=== PATIENT | male | born 1955 | race Caucasian/White ===

== ENCOUNTER 2020-07-31 12:03 | Inpatient (IN) | payer MEDICAID, SELFPAY ==
[2020-07-31 12:06] VITALS: BP 156/101; PULSE 98; RESP 16; TEMP 36.9; O2SAT 98; BMI 22.4
--- NOTE | 2020-07-31 12:26 | EKG12_ITS ---
Test Reason : Blood Pressure : / mmHG Vent. Rate : 081 BPM Atrial Rate : 081 BPM P-R Int : 174 ms QRS Dur : 104 ms QT Int : 364 ms P-R-T Axes : 036 -37 047 degrees QTc Int : 422 ms Normal sinus rhythm Left axis deviation Minimal voltage criteria for LVH, may be normal variant Abnormal ECG Confirmed by ROBIN THOMSON, IRENE ([id number]), editorial specialist FIORELLA VALDEZ ([id number]) on 08/03/2020 9:25:39 AM Referred By: SAI Confirmed By:IRENE KELLY MD
--- NOTE | 2020-07-31 12:26 | CT_ITS ---
STUDY: CT BRAIN WITHOUT CONTRAST REASON FOR EXAM: Male, 64 years old. confusion RADIATION DOSAGE (If Supplied By Facility): CTDIvol = ( 44.99 ) mGy, DLP = ( 796.11 ) mGycm TECHNIQUE: Transaxial CT imaging of the brain was performed without administration of intravenous contrast material. Individualized dose optimization techniques were used for this CT. COMPARISON: No relevant priors. FINDINGS: Normal soft tissue structures. Normal calvarium. Normal size ventricles and extra-axial spaces for the patient''s age. Normal white matter tracts of the cerebral hemispheres. Normal basal ganglia and thalami. Normal brainstem. Normal cerebellum. There is no intracranial hemorrhage. There are no findings of an acute ischemic infarction. Normal visualized paranasal sinuses. CT/Brain/Head without Contrast IMPRESSION: Normal unenhanced CT scan of the brain. Electronically Signed: Errol Murdock MD at 13:15 EDT Tel , Service support ,
--- NOTE | 2020-07-31 12:27 | RAD_ITS ---
STUDY: X-RAY CHEST REASON FOR EXAM: Male, 64 years old. sob TECHNIQUE: PA and lateral views of the chest. COMPARISON: None. FINDINGS: The lungs are clear and expanded. There is no demonstrated pleural abnormality. Normal size heart. Normal mediastinum and mahendra. Normal visualized pulmonary arteries. Normal visualized aortic arch and descending thoracic aorta. Normal visualized thoracic spine. Normal visualized ribs, clavicles, and shoulders. There is no demonstrated abnormality of the visualized soft tissue structures of the upper abdomen. RAD/Chest PA and Lateral IMPRESSION: Normal x-ray examination of the chest. Electronically Signed: Errol Murdock MD at 13:14 EDT Tel , Service support ,
--- NOTE | 2020-07-31 12:28 | EX.ED.DYSGE1 ---
HPI History of Present Illness Chief Complaint: General Illness Informant: patient and family Onset/Context/Timing Onset: Month(s) Context: Gradual Onset Current Severity: Moderate Maximum Severity: Moderate Narrative Narrative: Patient presents with complaints of tingling and decreased sensation. He states for months he has had problems with the symptoms in his hands and feet. Over the last several days he now feels that sensation over his entire body. He reports intermittent confusion as well as a 50 pound weight loss in the last couple months. Brother describes he ambulates with a shuffled gait has a very difficult time getting around. Patient does live alone. Patient does follow with Dr. Jacobsen. He is on losartan and atorvastatin for hypertension and high cholesterol. He recently started bupropion for smoking cessation. [facility] Medical History High cholesterol Hypertension Home Medications aspirin [Aspir-81] 81 mg PO DAILY 07/31/20 [History Last Taken Unknown] atorvastatin 80 mg PO QHS 07/31/20 [History Last Taken Unknown] bupropion HCl 300 mg PO DAILY 07/31/20 [History Last Taken Unknown] losartan 100 mg PO DAILY 07/31/20 [History Last Taken Unknown] Allergy/AdvReac Type Severity Reaction Status Date / Time No Known Allergies Allergy Verified 07/31/20 12:11 Social History Smoking Status: Current some day smoker ROS ROS ED Constitutional Constitutional ED: Denies chills or fever(s) Eyes Eyes: Denies change in vision ENT ENT ED: Denies sore throat Cardiovascular Cardiovascular: Denies chest pain Respiratory/Chest Respiratory/Chest: Denies cough or dyspnea Gastrointestinal Gastrointestinal: Denies abdominal pain, diarrhea, nausea or vomiting Genitourinary Genitourinary ED: Denies dysuria Musculoskeletal Musculoskeletal: Denies back pain Integumentary Denies rash Neurologic Neurologic: Reports paresthesias and weakness; Denies headache(s) Psychiatric Psychiatric: Denies anxiety or depression Endocrine Endocrinology: Denies polydipsia or polyuria Allergic/Immunologic Allergic/Immunologic ED: Denies urticaria EXAM Physical Exam Const Vital Signs: 07/31/20 12:06 07/31/20 12:20 07/31/20 12:43 Temperature 98.4 F Temperature Source Temporal Pulse Rate 98 100 Respiratory Rate 16 15 Respiratory Effort Normal Non-Labored Respiratory Pattern Normal Blood Pressure 156/101 H 116/87 H Blood Pressure Mean 119 96 Pulse Ox 98 100 Oxygen Delivery Method Room Air Room Air 07/31/20 12:49 Temperature Temperature Source Pulse Rate Respiratory Rate Respiratory Effort Normal Respiratory Pattern Normal Blood Pressure Blood Pressure Mean Pulse Ox Oxygen Delivery Method Positive well nourished and well developed General Appearance ED: well developed HEENT Reports normocephalic and head/scalp atraumatic Eyes PERRL and EOMs intact bilaterally Neck supple Chest Wall inspection of chest normal and palpation of chest normal Resp normal respiratory effort and clear to auscultation bilaterally Cardio regular rate and regular rhythm GI normal to inspection, nondistended, normoactive bowel sounds Palpation: soft Extremity normal to inspection Neuro oriented x3 Neuro Narrative: Patient reports decreased sensation to light touch throughout. Symptoms are equal bilaterally. He does have mild weakness noted but no focal deficits. Sensorium / Orientation: alert Psych mental status grossly normal Skin no rashes or lesions noted MDM MDM MDM Narrative Medical decision making narrative: Patient was placed on musculoskeletal physician. Vital signs were monitored throughout his ED stay. Lab Data Attestation: I reviewed the patient's lab results. Labs: Laboratory Results - last 24 hr 07/31/20 07/31/20 12:42 12:42 WBC 7.2 RBC 4.22 L Hgb 13.8 Hct 41.5 MCV 98.3 H MCH 32.7 H MCHC 33.3 RDW Std Deviation 44.4 H RDW Coeff of Junior 12.2 Plt Count 230 MPV 10.2 Immature Gran % (Auto) 0.400 Neut % (Auto) 73.3 H Lymph % (Auto) 15.1 L [place] % (Auto) 8.8 Eos % (Auto) 2.0 Baso % (Auto) 0.4 Absolute Neuts (auto) 5.3 Absolute Lymphs (auto) 1.08 Nucleated RBC % 0 Sodium 139 Potassium 3.7 Chloride 102 Carbon Dioxide 31.0 Anion Gap 6 BUN 16 Creatinine 0.75 Estim Creat Clear Calc 96.71 Est GFR (MDRD) Af Amer 135 Est GFR (MDRD) Non-Af 111 BUN/Creatinine Ratio 21.2 H Glucose 106 Calcium 9.7 Magnesium 2.3 Radiography Chest X-Ray - ED: 2 View, Read by ED Physician and Chronic Changes Diagnostic Testing: Radiology Impression Brain CT 07/31/20 12:26 IMPRESSION: Normal unenhanced CT scan of the brain. Electronically Signed: Errol Murdock MD at 13:15 EDT Tel , Service support , Chest X-Ray 07/31/20 12:27 IMPRESSION: Normal x-ray examination of the chest. Electronically Signed: Errol Murdock MD at 13:14 EDT Tel , Service support , EKG Initial EKG: Attestation: I personally reviewed and interpreted this EKG as follows: Interpretation: Sinus Rhythm (Sinus at 81 with no acute ischemia.) Prior EKG tracings: available for review Treatment and Re-Evaluation Comments:: On repeat evaluation patient is resting comfortably. Test results discussed with patient as well as his brother at bedside. Brother does mention the patient supposedly had recent MRI and bronchoscopy at [facility]. I was able to review some of these records in clinic sink. They have the patient diagnosed with sarcoidosis of the lung. Due to his ataxia, muscle weakness, and paresthesias they were trying to obtain MRIs of his spine. On July 29 he got an MRI of the lumbar spine which revealed degenerative disc disease and mild canal stenosis. There is no evidence of sarcoid involvement of the lumbar spine. Patient reported was not able to lie still for the thoracic or cervical scans. He did have a bronchoscopy performed on July 13 as well. There is significant concern about the patient's ability to care for himself and get around at home. He is quite forgetful and in fact does not remember having the bronchoscopy or MRIs performed. Brother is concerned that he may not be taking his medications or remembering his appointments. He also has concern about the patient's ability to get around with his shuffling gait and and balance. In light of this we recommended observation in the hospital for physical therapy evaluation. He is aware that they may very well recommend a custodial for rehab to regain his strength and work on balance. He is amenable to this if needed. Discharge Plan Triage Chief Complaint: General Illness ED Provider: Christine Mondragon Dx/Rx/DC Orders Clinical Impression: Paresthesias, Ataxia Prescriptions: No Action atorvastatin 80 mg Tablet 80 mg PO QHS RF: 0 aspirin [Aspir-81] 81 mg Tablet,Delayed Release (Dr/Ec) 81 mg PO DAILY RF: 0 losartan 100 mg Tablet 100 mg PO DAILY RF: 0 bupropion HCl 300 mg Tablet Extended Release 24 Hr 300 mg PO DAILY RF: 0 Primary Care Provider: Suleiman Jacobsen Referrals: Suleiman Jacobsen DO [Primary Care Provider] - Disposition Disposition: Acute Care Hospital [facility]
[2020-07-31 12:43] VITALS: BP 116/87; PULSE 100; RESP 15; O2SAT 100
[2020-07-31] MEDS: 0.9% Normal Saline 1,000 ML 150 ML IV ×2 (12:51→19:21)
[2020-07-31 12:53] LABS: Absolute Lymphocyte Count 1.08 X10^3/uL (0.83-4.51); Absolute Neutrophil Count 5.3 X10^3/uL (2.0-7.7); Basophil# 0.03 X10^3/uL; Basophil% 0.4 % (0-1); Eosinophil# 0.14 X10^3/uL; Hematocrit 41.5 % (40-54); Hemoglobin 13.8 g/dL (13.0-16.5); Lymphocyte # 1.08 X10^3/ul (0.83-4.51); Lymphocyte % 15.1 % (19-41); Mean Corp Hgb Conc 33.3 g/dL (32-36); Mean Corpuscular Hgb 32.7 pg (27.0-32.0); Mean Corpuscular Volume 98.3 fL (80-94); Mean Platelet Vol. 10.2 fl (6.2-12.0); Monocyte# 0.63 X10^3/uL; Monocyte% 8.8 % (0-10); NRBC Flagged by Analyzer 0 % (0-5); Neutrophil # 5.25 X10^3/uL (2.7-7.7); Neutrophil % 73.3 % (47-70); Platelet Count 230 K/mm3 (150-450); RBC Distribution Width CV 12.2 % (11.6-14.6); RBC Distribution Width SD 44.4 fl (35.1-43.9); Red Blood Count 4.22 M/mm3 (4.6-6.2); White Blood Count 7.2 K/mm3 (4.4-11.0)
[2020-07-31 13:08] LABS: Anion Gap 6 (5-15); BUN 16 mg/dL (7-18); BUN/Creat Ratio 21.2 RATIO (10-20); Calcium,Total 9.7 mg/dL (8.5-10.1); Chloride 102 mmol/L (98-107); Creatinine, Serum 0.75 mg/dL (0.70-1.30); EST Glomerular Filtration Rate 111 mL/min (>60); Est Glom Filt Rate - Afr Amer 135 mL/min (>60); Estimated Creatinine Clearance 96.71 ml/min; Glucose 106 mg/dL (74-106); Magnesium 2.3 mg/dL (1.6-2.6); Potassium 3.7 mmol/L (3.5-5.1); Sodium Level 139 mmol/L (136-145)
--- NOTE | 2020-07-31 14:09 | NURSING ---
DR MOLINA FOR DR BAILEY
--- NOTE | 2020-07-31 14:16 | NURSING ---
MED SURG TRACY ATAXIA, FUNCTIONAL DECLINE
[2020-07-31 15:03] VITALS: BP 136/99; PULSE 81; RESP 16; TEMP 36.9; O2SAT 98
--- NOTE | 2020-07-31 15:10 | HP.PCM.HOS_ITS ---
HPI - General General Date of Admission: 07/31/20 HPI Narrative BALTA DELATORRE, is a 64 M who presented to the emergency department [facility] on 07/31/2020 with his brother. His primary complaint on presentation is decreased ability to ambulate independently, paresthesias, and weakness. The patient's brother gives the majority of the history as the patient is unable to remember details regarding anything recently that has occurred. He had evidently began having paresthesias and weakness a while ago and now is with approximately 50 pounds of weight loss in the past 2 to 3 months. He has been out of work for some time but cannot tell me how long. His brother indicates that he has had bronchoscopy and a lumbar spine MRI recently but was unclear on the location and the patient had no recollection that either of these procedures were performed. Upon review of data in [facility], it appears that the patient initially had a CT scan of his chest in which sarcoido sis was a possible differential earlier in the year and this was followed up by a bronchoscopy at [facility] for which the pathology was unrevealing based on my review. He also had a lumbar spine MRI that was performed here at [facility] on 07/29/2020 that revealed de generative disc disease and mild central canal stenosis. He was also to have an MRI of his brain, cervical spine, and thoracic spine but he was not and able to lie flat for these and it was recommended that he follow-up at a later time with medication to have these done. His brother is significantly concerned that he is unable to take care of himself. He feels that his weight loss may be related to initially the patient complaining of a metallic taste in his mouth and decreased desire to eat but now may be related to memory loss. His brother indicates that the patient was a heavy drinker when he was working but the patient states he is not really been drinking alcohol since he has been out of work which at this time is an unknown amount of time. His brother states that his gait is shuffling and he moves inches at a time. The patient complains of falls particularly when it is dark. He complains of decreased sensation in his feet and hands and decreased strength in both as well. He is currently living alone and the brother feels that he is not able to take care of himself indep endently at this time and will likely need placed for continued rehab. His vital signs the emergency department were overall unremarkable other than some hypertension. His CBC was unremarkable other than some macrocytosis. A BMP was performed and showed no market abnormalities. No LFTs were obtained in the emergency department. [facility] Medical History (Updated 07/31/20 @ 15:39 by Shannon Hwang) Alcohol abuse Alcohol abuse CPAP (continuous positive airway pressure) dependence High cholesterol Hypertension Myocardial infarct Psoriasis Sleep apnea Tobacco abuse Home Medications aspirin [Aspir-81] 81 mg PO DAILY 07/31/20 [History Last Taken Unknown] atorvastatin 80 mg PO QHS 07/31/20 [History Last Taken Unknown] bupropion HCl 300 mg PO DAILY 07/31/20 [History Last Taken Unknown] losartan 100 mg PO DAILY 07/31/20 [History Last Taken Unknown] Allergy/AdvReac Type Severity Reaction Status Date / Time No Known Allergies Allergy Verified 07/31/20 15:26 Family History (Updated 07/31/20 @ 15:[address] Elizabeth Lucas DO) Brother No problems noted. no surgical history Social History (Updated 07/31/20 @ 15:[address] Elizabeth Lucas DO) adopted: No household members: none housing: house financial difficulty paying for basics: hard current occupational status: other current occupation: [employer] Smoking Status: Current some day smoker alcohol intake: former details: 1 case 12 oz beers daily but not currently drinking substance use type: does not use ROS Constitutional Constitutional: Reports anorexia, change in weight, weakness and other Details: Psoriasis ; Denies chills, fatigue, fever(s), malaise or night sweats Eyes Eyes: Denies blurry vision, change in eye color, change in vision, discharge from eye(s), double vision, erythema, eye pain or loss of vision ENT HEENT: Denies abnormal hearing, dysphagia, ear pain, epistaxis, headache(s), hearing loss, nasal congestion, nasal discharge, post nasal drip, sinus pressure, sore throat or other Cardiovascular Cardiovascular: Denies chest pain, claudication, dyspnea on exertion, edema, lightheadedness, orthopnea, palpitations, paroxysmal nocturnal dyspnea, rapid heart rate, syncope or other Respiratory/Chest Respiratory/Chest: Denies cough, dyspnea, excessive phlegm production, hemoptysis, productive cough, shortness of breath at rest, shortness of breath with exertion, wheezing or other Gastrointestinal Gastrointestinal: Denies abdominal pain, coffee ground emesis, constipation, diarrhea, dyspepsia, hematemesis, hematochezia, loose stools, melena, nausea, vomiting or other Genitourinary Genitourinary: Denies burning urination, difficulty urinating, dysuria, hematuria, nocturia, urinary frequency, urinary hesitancy, urinary incontinence, urinary urgency or other Musculoskeletal Musculoskeletal: Reports back pain, joint pain and joint stiffness; Denies arthralgias, joint swelling, myalgias or neck pain Neurologic Neurologic: Reports abnormal gait, confusion, focal weakness, numbness, paresthesias and tingling; Denies abnormal speech, disequilibrium, dizziness, headache(s), seizure-like activity, seizures, syncope or tremor(s) Psychiatric Psychiatric: Denies anxiety, depression, homicidal ideation or suicidal ideation Endocrine Endocrinology: Denies change in body appearance, cold intolerance, excessive sweating, heat intolerance, polydipsia or polyuria Hematologic/Lymphatic Hematologic/Lymphatic: Denies anemia, easy bleeding, easy bruising or lymphadenopathy Allergic/Immunologic Allergic/Immunologic: Denies rhinitis, hives, eczemia or asthma Vital Signs Vital Signs Vital Signs: 07/31/20 12:06 07/31/20 12:20 07/31/20 12:43 Temperature 98.4 F Temperature Source Temporal Pulse Rate 98 100 Respiratory Rate 16 15 Respiratory Effort Normal Non-Labored Respiratory Pattern Normal Blood Pressure 156/101 H 116/87 H Blood Pressure Mean 119 96 Pulse Ox 98 100 Oxygen Delivery Method Room Air Room Air 07/31/20 12:49 07/31/20 15:03 Temperature 98.4 F Temperature Source Temporal Pulse Rate 81 Respiratory Rate 16 Respiratory Effort Normal Respiratory Pattern Normal Blood Pressure 136/99 H Blood Pressure Mean 111 Pulse Ox 98 Oxygen Delivery Method Room Air Physical Exam Const alert, no apparent distress and average body habitus; Negative for oriented x3, healthy appearing or well nourished General Appearance: cooperative; Negative for uncooperative Orientation / Consciousness: confused; Negative for disoriented or lethargic HEENT normocephalic, head/scalp atraumatic, hearing grossly normal bilaterally, moist oral mucous membranes and oropharynx normal; Negative for dentition normal Mouth: oral and palatal mucosa normal and No moist mucous membranes abnormal Eyes PERRL, EOMs intact bilaterally and conjunctivae normal Neck no lymphadenopathy, supple, no JVD and no carotid bruits Resp normal respiratory effort, no retractions, no use of accessory muscles and clear to auscultation bilaterally Resp Narrative: Diffusely diminished Auscultation: Negative for crackles, rales, rhonchi or wheezes Cardio regular rate, regular rhythm, S1 normal heart sound, S2 normal heart sound, no murmurs, no rub, no gallops, no clicks and no JVD GI normal to inspection, nondistended, normoactive bowel sounds, soft to palpation, non-tender and non-distended; Negative for hepatosplenomegaly Auscultation: Negative for hyperactive bowel sounds or hypoactive bowel sounds Palpation: tender; Negative for guarding or hernia Extremity Negative for full ROM or no clubbing, cyanosis or edema Peripheral Pulses: Negative for pulses 2+ throughout Skin no wounds, skin turgor normal, no jaundice, no petechiae and no mottling Skin Narrative: Patchy psoriasis bilateral elbows bilateral knees low back Neuro No oriented x3, CN's II-XII intact bilaterally and moves all extremities Neuro Narrative: Mild past pointing with [id number], mild apraxia, proximal weakness at 4- out of 5, elbow and knee flexion extension 5 out of 5, weakness in ankle flexors and extensors, marked bilateral hand weakness, patient is oriented to self and place, is able to tell me it is July but tells me it is 2018 and is unclear who the president of [facility] is Sensorium / Orientation: awake, alert, oriented to person and oriented to place; Negative for oriented to time Speech: speech normal Psych affect normal Mood & Affect: Negative for depressed or anxious Lab / Micro Data Attestation: I reviewed the patient's lab results. Result Diagrams: 07/31/20 12:42 07/31/20 12:42 Labs: Laboratory Results - last 24 hr 07/31/20 07/31/20 12:42 12:42 WBC 7.2 RBC 4.22 L Hgb 13.8 Hct 41.5 MCV 98.3 H MCH 32.7 H MCHC 33.3 RDW Std Deviation 44.4 H RDW Coeff of Ujn[place] 12.2 Plt Count 230 MPV 10.2 Immature Gran % (Auto) 0.400 Neut % (Auto) 73.3 H Lymph % (Auto) 15.1 L [place] % (Auto) 8.8 Eos % (Auto) 2.0 Baso % (Auto) 0.4 Absolute Neuts (auto) 5.3 Absolute Lymphs (auto) 1.08 Nucleated RBC % 0 Sodium 139 Potassium 3.7 Chloride 102 Carbon Dioxide 31.0 Anion Gap 6 BUN 16 Creatinine 0.75 Estim Creat Clear Calc 96.71 Est GFR (MDRD) Af Amer 135 Est GFR (MDRD) Non-Af 111 BUN/Creatinine Ratio 21.2 H Glucose 106 Calcium 9.7 Magnesium 2.[address] 07/31/20 12:26 IMPRESSION: Normal unenhanced CT scan of the brain. Electronically Signed: Errol Murdock MD at 13:15 EDT Tel , Service support , Chest X-Ray 07/31/20 12:27 IMPRESSION: Normal x-ray examination of the chest. Electronically Signed: Errol Murdock MD at 13:14 EDT Tel , Service support , Assessment & Plan Assessment/Plan (1) Memory loss: (2) Weakness: (3) Alcohol abuse: (4) Tobacco abuse: (5) Paresthesias: (6) Ataxia: (7) HTN (hypertension): (8) Hyperlipidemia: (9) Psoriasis: PLAN: Paresthesias/weakness/ataxia/memory loss -Check MRI of the brain and cervical spine -Patient will likely need sedated mildly for this on Sunday -Check TSH, B12, folate -Patient does have considerable history of alcohol abuse--> question Wernicke- Korsakoff syndrome -Consult physical therapy and Occupational Therapy -Consult case management for placement History of hypertension -Continue losartan -Monitor blood pressures Hyperlipidemia -Continue atorvastatin Psoriasis -Patient has not taken any Biologics for this in the past -If he has any problems with those during his hospitalization we may consider topical steroids as this is what he typically uses at home Tobacco abuse -14 mcg nicotine patch -Recommend smoking cessation History of alcohol abuse -Patient has not currently been drinking and is unable to remember the last time he was drinking heavily -Indicates when he was last employed but is unable to tell me when this was -Start multivitamin and thiamine and folate -Should not see any signs of withdrawal at this time DVT prophylaxis -Lovenox -SCDs CODE STATUS -Full code Visit Charges Inpatient E&M: 14534 Init Hosp L3
[2020-07-31 15:19] VITALS: BP 157/102; PULSE 81; RESP 15; TEMP 36.6; O2SAT 98
[2020-07-31 15:20] VITALS: BMI 22.6
[2020-07-31 16:05] VITALS: O2SAT 98
[2020-07-31 16:55] LABS: T4 Free Direct 0.92 ng/dL (0.76-1.46)
[2020-07-31] MEDS: Thiamine Hydrochloride 100 MG Tablet PO (17:47)
--- NOTE | 2020-07-31 18:04 | CASEMGMT ---
Addendum entered by Theresa Padgett 07/31/20 18:18: SW Error and update Referral Source Dr. Lucas Reason for Referral Discharge Planning Theresa Arceder BLUEPRINT BLOCKERVivien [place] Original Note: SW Note Referral Source: CM Referral Reason: Discharge Planning SW went to patient's room and met with patient and his visitor, Kathy friend and ex . Patient gave permission to speak to him in Kathy's presence. PCP: Dr. Jacobsen Specialist: None Preferred Pharmacy: [facility] Insurance: [place] Prescription Benefits I don't know Living Will/HCPOA. Patient reports no advanced directives. Patient said I should and reports he would like SW to stop by later to discuss HCPOA/Living Will. LNOK: Jluis Pichardo, patient's brother Living Arrangement: 1 / story house with 4-5 steps to the porch and then short step into the house. Patient said that he has 1 step on the side but was unable to recall number thenumber o steps on the back door, Prior Level of Function: Patient reports according to Kathy and my brother I wasn't taking care of myself as good as I thought I was. Patient reports he was not cooking and yesterday ate dry cereal and his brother brought him a sandwich. Patient recalled he had also spilled a shake yesterday. Patient was eating supper and stated that this is the first time today he had eaten. Nursing staff reports that patient needed assistance to get out of bed. RN reports patient said he did not know him and Kathy were . DME: CPAP and cane HHC and SNF: Patient said that he is not sure what level of care he will need at discharge. He reports I should at least have someone coming to my house to check on me. Patient said that the only time he had people come to the house to check on him was after they set up the cpap and patient unable recall name of CPAP provider. Assessment: Continue to assess for discharge planning Plan: To be determined, Patient would like HCPOA/LIVING WILL forms and list of SNF facilities. Theresa AndrewsNoelle [place]
[2020-07-31 19:40] LABS: Bacteria 0 SEEN /hpf (None Seen); Squamous Epithelial Cells - UA 0 SEEN /hpf (0-5)
[2020-07-31 19:42] LABS: Color, Urine Yellow (Yellow); Glucose, Dipstick Normal (Normal); Ketone-Dipstick Negative (Negative); Leukocyte Esterase-Dipstick Negative /ul (Negative); Nitrite-Dipstick Negative (Negative); Occult Blood-Urine Negative /ul (Negative); Protein-Dipstick Negative (Negative); Specific Gravity, Urine 1.015 (1.002-1.030); Urine Bilirubin Dipstick Negative (Negative); Urine Clarity Clear (Clear); Urine Urobilinogen Normal (Normal)
[2020-07-31 19:50] LABS: White Blood Cells 0-5 SEEN /hpf (0-5)
[2020-07-31 19:52] LABS: Mucous, Urine RARE /hpf (<or=2+)
[2020-07-31 19:53] LABS: Red Blood Cells-Urine 0-5 SEEN /hpf (0-5)
[2020-07-31] MEDS: Atorvastatin Calcium 80 MG Tablet PO (20:26)
[2020-07-31 20:28] VITALS: BP 120/78; PULSE 71; RESP 18; TEMP 37.2; O2SAT 95
[2020-08-01] MEDS: 0.9% Normal Saline 1,000 ML 150 ML IV ×4 (01:54→20:32)
[2020-08-01 02:03] VITALS: BP 143/92; PULSE 75; RESP 18; TEMP 36.3; O2SAT 93
[2020-08-01 06:01] LABS: Absolute Lymphocyte Count 1.32 X10^3/uL (0.83-4.51); Basophil# 0.04 X10^3/uL; Basophil% 0.5 % (0-1); Eosinophil# 0.16 X10^3/uL; Eosinophils% 2.2 % (0-5); Hematocrit 36.6 % (40-54); Hemoglobin 12.2 g/dL (13.0-16.5); Lymphocyte # 1.32 X10^3/ul (0.83-4.51); Lymphocyte % 17.9 % (19-41); Mean Corp Hgb Conc 33.3 g/dL (32-36); Mean Corpuscular Volume 98.9 fL (80-94); Monocyte# 0.77 X10^3/uL; Monocyte% 10.5 % (0-10); NRBC Flagged by Analyzer 0 % (0-5); Neutrophil # 5.04 X10^3/uL (2.7-7.7); Neutrophil % 68.5 % (47-70); Platelet Count 197 K/mm3 (150-450); RBC Distribution Width SD 43.6 fl (35.1-43.9); White Blood Count 7.4 K/mm3 (4.4-11.0)
[2020-08-01 06:38] LABS: ALB/GLOB Ratio 1.1 RATIO (0.9-2.4); AST(SGOT) 8 U/L (15-37); Alanine Aminotransfer ALT/SGPT 17 U/L (16-61); Albumin, Serum 3.2 g/dL (3.2-5.0); Alkaline Phosphatase 70 U/L (45-117); Anion Gap 5 (5-15); BUN 15 mg/dL (7-18); BUN/Creat Ratio 22.8 RATIO (10-20); Calcium,Total 8.5 mg/dL (8.5-10.1); Chloride 110 mmol/L (98-107); Creatinine, Serum 0.66 mg/dL (0.70-1.30); EST Glomerular Filtration Rate 130 mL/min (>60); Est Glom Filt Rate - Afr Amer 158 mL/min (>60); Globulin 2.8 g/dL (2.2-4.2); Glucose 92 mg/dL (74-106); Magnesium 2.1 mg/dL (1.6-2.6); Phosphorus 2.8 mg/dL (2.5-4.9); Potassium 3.6 mmol/L (3.5-5.1); Sodium Level 143 mmol/L (136-145)
[2020-08-01 07:01] VITALS: O2SAT 92
[2020-08-01 07:41] VITALS: BP 149/93; PULSE 65; RESP 16; TEMP 36.8; O2SAT 95
[2020-08-01] MEDS: Thiamine Hydrochloride 100 MG Tablet PO (07:50)
[2020-08-01] MEDS: Folic Acid 1 MG Tablet PO (07:50)
[2020-08-01] MEDS: Aspirin E.C. 81 MG Tablet PO (07:51)
[2020-08-01] MEDS: Multivitamins,Therapeutic Tablet 1 TABLET PO (07:51)
[2020-08-01] MEDS: Acetaminophen 325 MG Tablet 650 MG PO (07:53)
[2020-08-01 08:10] LABS: Vitamin B12 557 pg/mL (211-911)
--- NOTE | 2020-08-01 10:09 | NT.THERAPY_ITS ---
Nutrition Therapy Report - History Nutrition Services has been consulted to:: Manage nutrient details of diet order Current diet / nutrition support order:: regular, 120mL ensure enlive w/ medpass - Anthropometric Measurements Height:: 5 ft 8 in Weight:: 67.4 kg Body Mass Index (BMI):: 22.6 - Relevant Labs Relevant Labs:: RBC 3.70 M/mm3 (4.6-6.2) L 08/01/20 05:45 Hgb 12.2 g/dL (13.0-16.5) L 08/01/20 05:45 Hct 36.6 % (40-54) L 08/01/20 05:45 MCV 98.9 fL (80-94) H 08/01/20 05:45 MCH 33.0 pg (27.0-32.0) H 08/01/20 05:45 RDW Std Deviation 44.4 fl (35.1-43.9) H 07/31/20 12:42 Neut % (Auto) 73.3 % (47-70) H 07/31/20 12:42 Lymph % (Auto) 17.9 % (19-41) L 08/01/20 05:45 [place] % (Auto) 10.5 % (0-10) H 08/01/20 05:45 Chloride 110 mmol/L (98-107) H 08/01/20 05:45 Creatinine 0.66 mg/dL (0.70-1.30) L 08/01/20 05:45 BUN/Creatinine Ratio 22.8 RATIO (10-20) H 08/01/20 05:45 AST 8 U/L (15-37) L 08/01/20 05:45 Total Protein 6.0 g/dL (6.4-8.2) L 08/01/20 05:45 Folate 64.60 ng/mL (3.1-55.4) H 07/31/20 12:42 - Assessment Food / Nutrition-Related History:: Fair intake observed at breakfast this date. Pt states he has no sense of taste which he thinks has been ongoing for awh ile. Pt is unsure of his usual intake [place] and unable to provide much information about his state of health [place]. Per H&P, brother states pt has possibly been forgetting to eat at home, w/ unintentional wt loss of 50# or more over past 3 months. Pt thinks UBW 230# suggesting a 81.4#/35% wt loss which is significant for malnutrition. - Nutrition Diagnosis Problem / Etiology / Signs & Symptoms (PES):: acute severe malnutrition related to inadequate energy intake d/t memory issues, altered tastes as evidenced by estimated PO intake meeting <75% of nutritional needs >3 months, unintentional wt loss of 81.4#/35% x 3 months [place] Evidence of Malnutrition Exists:: Yes Severe Protein Calorie Malnutrition:: Acute Illness - Nutrition Intervention Nutrition Prescription:: [id number] calories/day (1.3xRMR). 65-75 g protein/day (1g/kg). 2000mL fluid/day (30mL/kg) - Food / Nutrient Delivery Interventions Summary of nutrition intervention:: Pt is agreeable to Ensure for additional calories/protein if consumed. Pt w/ no questions for RDN at this time. Nutrition support ordered as / adjusted to:: continue regular diet, 120mL ensure enlive 4x/day - MNT Monitoring Further MNT monitoring and evaluation required?: Yes MNT Follow-up in:: 3-5 days
[2020-08-01 10:16] VITALS: BMI 22.6
[2020-08-01] MEDS: Losartan Potassium 100 MG Tablet PO (10:42)
[2020-08-01] MEDS: Enoxaparin 40 MG/0.4 ML Syringe SC (10:42)
[2020-08-01] MEDS: buPROPion (XL) 300 MG TABLET.XL PO (10:42)
--- NOTE | 2020-08-01 15:06 | PCM.PN.HOSP ---
Subjective Subjective Patient was seen and examined today, he exhibits cognitive impairment to this examiner, he does not seem to understand what testing has been done since he has been in the hospital, his complaints are nonspecific but seem to center on his inability to use his arms, he does not know if he has had an MRI on his neck in the past-according to medical records during this admission, it was noted that additional test had been attempted recently but patient could not lie flat for the imaging studies. According to the medical record, his brother who brought him to the emergency room was concerned that the patient was unable to take care of himself. Further imaging studies are pending at this time. Objective Data Objective Data Vital Signs: Vital Signs Temp Pulse Resp BP Pulse Ox 98.2 F 65 16 149/93 H 95 08/01/20 07:41 08/01/20 07:41 08/01/20 07:41 08/01/20 07:41 08/01/20 07:41 Oxygen Delivery Method Room Air Weight: 67.4 kg Body Mass Index (BMI) 22.6 Intake & Output: Intake and Output for Last 24 Hours 07/30/20 07/31/20 08/01/20 23:59 23:59 23:59 Intake Total 1325 / 1325 2280.0 / 2280.0 Balance 1325 / 1325 2280.0 / 2280.0 Lab / Micro Data Result Diagrams: 08/01/20 05:45 08/01/20 05:45 Labs: Laboratory Results - last 24 hr 07/31/20 07/31/20 08/01/20 12:42 19:25 05:45 WBC 7.4 RBC 3.70 L Hgb 12.2 L Hct 36.6 L MCV 98.9 H MCH 33.0 H MCHC 33.3 RDW Std Deviation 43.6 RDW Coeff of Junior 12.0 Plt Count 197 MPV 10.0 Immature Gran % (Auto) 0.400 Neut % (Auto) 68.5 Lymph % (Auto) 17.9 L [place] % (Auto) 10.5 H Eos % (Auto) 2.2 Baso % (Auto) 0.5 Absolute Neuts (auto) 5.0 Absolute Lymphs (auto) 1.32 Nucleated RBC % 0 Sodium Potassium Chloride Carbon Dioxide Anion Gap BUN Creatinine Estim Creat Clear Calc Est GFR (MDRD) Af Amer Est GFR (MDRD) Non-Af BUN/Creatinine Ratio Glucose Calcium Phosphorus Magnesium Total Bilirubin AST ALT Alkaline Phosphatase Total Protein Albumin Globulin Albumin/Globulin Ratio Vitamin B12 Folate 64.60 H TSH Free T4 0.92 Urine Color Yellow Urine Clarity Clear Urine pH 8.[address] [place] 1.015 Urine Protein Negative Urine Glucose (UA) Normal Urine Ketones Negative Urine Occult Blood Negative Urine Nitrite Negative Urine Bilirubin Negative Urine Urobilinogen Normal Ur Leukocyte Esterase Negative Urine RBC 0-5 SEEN Urine WBC 0-5 SEEN Ur Squamous Epith Cells 0 SEEN Urine Bacteria 0 SEEN Urine Mucus RARE 08/01/20 08/01/20 05:45 05:45 WBC RBC Hgb Hct MCV MCH MCHC RDW Std Deviation RDW Coeff of Junior Plt Count MPV Immature Gran % (Auto) Neut % (Auto) Lymph % (Auto) [place] % (Auto) Eos % (Auto) Baso % (Auto) Absolute Neuts (auto) Absolute Lymphs (auto) Nucleated RBC % Sodium 143 Potassium 3.6 Chloride 110 H Carbon Dioxide 28.0 Anion Gap 5 BUN 15 Creatinine 0.66 L Estim Creat Clear Calc 110.80 Est GFR (MDRD) Af Amer 158 Est GFR (MDRD) Non-Af 130 BUN/Creatinine Ratio 22.8 H Glucose 92 Calcium 8.5 Phosphorus 2.8 Magnesium 2.1 Total Bilirubin 0.60 AST 8 L ALT 17 Alkaline Phosphatase 70 Total Protein 6.0 L Albumin 3.2 Globulin 2.8 Albumin/Globulin Ratio 1.1 Vitamin B12 557 Folate TSH 2.50 Free T4 Urine Color Urine Clarity Urine pH Ur Specific [place] Urine Protein Urine Glucose (UA) Urine Ketones Urine Occult Blood Urine Nitrite Urine Bilirubin Urine Urobilinogen Ur Leukocyte Esterase Urine RBC Urine WBC Ur Squamous Epith Cells Urine Bacteria Urine Mucus Physical Exam Const alert and no apparent distress General Appearance: cooperative, disheveled and appears older than stated age Nutritional Appearance: underweight HEENT moist oral mucous membranes Head and Scalp: normocephalic Eyes PERRL and EOMs intact bilaterally Neck no lymphadenopathy, supple and no JVD Resp normal respiratory effort, no retractions, no use of accessory muscles and clear to auscultation bilaterally Cardio regular rate, regular rhythm, S1 normal heart sound, S2 normal heart sound, no gallops and no clicks GI normal to inspection, nondistended, normoactive bowel sounds, soft to palpation and non-tender Extremity normal to inspection Neuro Sensorium / Orientation: awake, alert, oriented to person and oriented to place Psych affect normal Appearance: unkempt and disheveled Activity / Motor Behavior: appropriate eye contact Speech: delayed Thought Process: disorganized and confused Memory / Cognition: cognition impaired Assessment & Plan Assessment/Plan (1) Memory loss: PLAN: #1 upper extremity paresthesias and complaints of upper extremity weakness-etiology unclear at this time, patient's cervical MRI and brain MRI will be performed tomorrow, PT and OT will continue to see the patient, he will need short-term placement in a long term facility #2 cognitive impairment-I suspect this may be secondary to early dementia, patient is able to carry on conversation but cannot come up with words and does not know the date #3 essential hypertension #4 elevated cholesterol Visit Charges Inpatient E&M: 14843 Subs Hosp L2
[2020-08-01 15:23] VITALS: BP 143/76; PULSE 75; RESP 18; TEMP 37.1; O2SAT 95
[2020-08-01] MEDS: Atorvastatin Calcium 80 MG Tablet PO (20:32)
[2020-08-01 20:38] VITALS: BP 139/84; PULSE 72; RESP 16; TEMP 37.1; O2SAT 93
[2020-08-02] VITALS (11 sets, daily range): BP systolic 138–179; BP diastolic 72–98; PULSE 63–80; RESP 16–19; TEMP 36.6–37.3; O2SAT 92–98
[2020-08-02] MEDS: 0.9% Normal Saline 1,000 ML 150 ML IV (03:39)
[2020-08-02] MEDS: Multivitamins,Therapeutic Tablet 1 TABLET PO (07:24)
[2020-08-02] MEDS: Losartan Potassium 100 MG Tablet PO (07:25)
[2020-08-02] MEDS: Folic Acid 1 MG Tablet PO (07:25)
[2020-08-02] MEDS: Enoxaparin 40 MG/0.4 ML Syringe SC (07:25)
[2020-08-02] MEDS: Thiamine Hydrochloride 100 MG Tablet PO (07:25)
[2020-08-02] MEDS: buPROPion (XL) 300 MG TABLET.XL PO (07:25)
[2020-08-02] MEDS: Aspirin E.C. 81 MG Tablet PO (07:25)
[2020-08-02] MEDS: LORazepam 1 MG Tablet 2 MG PO (08:16)
--- NOTE | 2020-08-02 09:00 | MRI_ITS ---
STUDY: MRI BRAIN WITHOUT CONTRAST REASON FOR EXAM: Male, 64 years old. ataxia/memory loss/sensory loss/weakness TECHNIQUE: Standardized multiplanar fat and water weighted pulse sequences were obtained. COMPARISON: CT 07/31/2020 FINDINGS: There is mild cerebral atrophy with widening of the extra-axial spaces and ventricular dilatation. There are a limited number of small white matter hyperintensities, distributed throughout the deep white matter tracts of the cerebral hemispheres, consistent with mild chronic white matter ischemic changes. There is no evidence for recent intracranial ischemia or other cause of cytotoxic edema on diffusion weighted imaging (DWI). Normal T2* images of the brain without demonstrated susceptibility artifact. There is no demonstrated hemosiderin stain. Normal bilateral basal ganglia. Normal thalami. There is no extra-axial fluid accumulation. Normal flow voids within the major intracranial circulation suggesting patency by spin echo criteria. Normal sella turcica, pituitary gland, infundibular stalk, optic chiasm and hypothalamus. Normal tectal plate and pineal gland. Normal midbrain, redd and medulla. Normal cerebellum. Normal basal cisterns. Normal bilateral temporal bones. Normal bilateral internal auditory canals. No demonstrated orbital abnormality, within the constraints of a routine brain study. Normal visualized paranasal sinuses. Normal calvarium and skull base. Normal visualized soft tissue structures. Normal visualized upper cervical spine. MRI/Brain without Contrast IMPRESSION: Involutional changes of the brain, as described above. No acute infarct. Electronically Signed: Errol Murdock MD at 11:02 EDT Tel , Service support ,
--- NOTE | 2020-08-02 09:00 | MRI_ITS ---
STUDY: MRI CERVICAL SPINE WITHOUT CONTRAST REASON FOR EXAM: Male, 64 years old. Tingling/Numbness/Weakness TECHNIQUE: Standardized fat and water weighted pulse sequences were obtained in the sagittal and axial planes. COMPARISON: None FINDINGS: The study is markedly degraded by motion artifact which makes interpretation difficult. Normal foramen magnum and brainstem-cervical cord junction. Normal craniovertebral junction. Normal anterior atlantoaxial articulation. Normal odontoid process. Normal cervical lordosis. Normal vertebral bodies and posterior osseous elements. C2-3: Normal endplates. Normal disc height, signal and morphology. Normal central canal and intervertebral neural foramina. C3-4: Mild broad disc osteophyte complex asymmetric to left produces mild spinal stenosis and mild left neural foraminal stenosis. C4-5: Mild broad disc osteophyte complex produces mild spinal stenosis and mild bilateral neural foraminal stenosis. C5-6: Mild broad disc osteophyte complex produces mild spinal stenosis but no neural foraminal stenosis. C6-7: Moderate broad disc osteophyte complex asymmetric to left produces moderate spinal stenosis with abutment of the left hemicord and moderate left neural foraminal stenosis. C7-T1: Normal endplates. Normal disc height, signal and morphology. Normal central canal and intervertebral neural foramina. Normal cervical cord. Normal visualized soft tissue structures. MRI/Spine Cervical (Routine) IMPRESSION: Multilevel degenerative changes, as described above. Electronically Signed: Errol Murdock MD at 12:06 EDT Tel , Service support ,
--- NOTE | 2020-08-02 14:39 | CASEMGMT ---
Social Work Note SW in to speak with pt to continue discussion of discharge plans. Pt is alert and orientated x3. SW spoke with pt regarding SNF recommendation. Patient was provided a list of SNF providers including quality and resource use data and consistent with the patient?s preferred geographic region, medical needs, and insurance network. Pt states his preferred provider is [facility]. SW explained referral process and that pt will need pre-cert. Pt states understanding. SW faxed referral to [facility]. SW placed a call to Allyson at [facility] and provided referral. Plan: [facility] pending acceptance and pre-cert Allyson Sahu EPIC TRAINER, PLUG SHAPER HAND
--- NOTE | 2020-08-02 15:31 | CASEMGMT ---
Social Work Note TAN placed a call to Allyson at [facility]. Allyson confirms they received referral and nurse is reviewing referral. TAN informed Allyson that if [facility] can accept pt to submit for pre-cert. Allyson states understanding. Plan: [facility] pending pre-cert Allyson LION, MAIL PROCESSING EQUIPMENT MECHANIC
--- NOTE | 2020-08-02 19:30 | PCM.PN.HOSP ---
Subjective Subjective Patient was seen and examined today, MRI of the brain did not show any acute process such as a stroke, MRI of the cervical spine showed degenerative disc disease but no serious impingement on the spinal cord. I talked at length with the patient's brother by phone, I am unsure what is causing the patient's cognitive impairment at this time, I attempted to get a hold of the patient's PCP but she did not return my request for a call back at the time of this dictation. We are currently awaiting approval for placement in a penitentiary facility at least short-term, patient's B12 and folate levels appear normal. Objective Data Objective Data Vital Signs: Vital Signs Temp Pulse Resp BP Pulse Ox 99.1 F 69 16 149/98 H 98 08/02/20 14:32 08/02/20 14:32 08/02/20 14:32 08/02/20 14:32 08/02/20 14:32 Oxygen Delivery Method Room Air Weight: 68.583 kg Body Mass Index (BMI) 22.6 Intake & Output: Intake and Output for Last 24 Hours 07/31/20 08/01/20 08/02/20 23:59 23:59 23:59 Intake Total 1325 / 1325 4627.5 / 4627.5 2595 / 2595 Balance 1325 / 1325 4627.5 / 4627.5 2595 / 2595 Lab / Micro Data Result Diagrams: 08/01/20 05:45 08/01/20 05:45 Labs: Laboratory Results - last 24 hr 08/02/20 16:22 Folate 33.70 Radiography Diagnostic Testing: Radiology Impression Brain MRI 08/02/20 09:00 IMPRESSION: Involutional changes of the brain, as described above. No acute infarct. Electronically Signed: Errol Murdock MD at 11:02 EDT Tel , Service support , Cervical Spine MRI 08/02/20 09:00 IMPRESSION: Multilevel degenerative changes, as described above. Electronically Signed: Errol Murdock MD at 12:06 EDT Tel , Service support , Physical Exam Narrative ENT moist oral mucous membranes Head and Scalp: normocephalic Eyes PERRL and EOMs intact bilaterally Neck no lymphadenopathy, supple and no JVD Resp normal respiratory effort, no retractions, no use of accessory muscles and clear to auscultation bilaterally Cardio regular rate, regular rhythm, S1 normal heart sound, S2 normal heart sound, no gallops and no clicks GI normal to inspection, nondistended, normoactive bowel sounds, soft to palpation and non-tender Extremity normal to inspection Neuro Sensorium / Orientation: awake, alert, oriented to person and oriented to place Psych affect normal Appearance: unkempt and disheveled Activity / Motor Behavior: appropriate eye contact Speech: delayed Thought Process: disorganized and confused Memory / Cognition: cognition impaired Const alert, no apparent distress and average body habitus; Negative for oriented x3, healthy appearing or well nourished General Appearance: cooperative, disheveled and appears older than stated age; Negative for uncooperative Orientation / Consciousness: confused; Negative for disoriented or lethargic Nutritional Appearance: underweight HEENT normocephalic, head/scalp atraumatic, hearing grossly normal bilaterally, moist oral mucous membranes and oropharynx normal; Negative for dentition normal Eyes PERRL, EOMs intact bilaterally and conjunctivae normal Neck no lymphadenopathy, supple, no JVD and no carotid bruits Resp normal respiratory effort, no retractions, no use of accessory muscles and clear to auscultation bilaterally Resp Narrative: Diffusely diminished Auscultation: Negative for crackles, rales, rhonchi or wheezes Cardio regular rate, regular rhythm, S1 normal heart sound, S2 normal heart sound, no murmurs, no rub, no gallops, no clicks and no JVD GI normal to inspection, nondistended, normoactive bowel sounds, soft to palpation, non-tender and non-distended; Negative for hepatosplenomegaly Auscultation: Negative for hyperactive bowel sounds or hypoactive bowel sounds Palpation: tender; Negative for guarding or hernia Extremity normal to inspection; Negative for full ROM or no clubbing, cyanosis or edema Skin no wounds, skin turgor normal, no jaundice, no petechiae and no mottling Skin Narrative: Patchy psoriasis bilateral elbows bilateral knees low back Neuro No oriented x3, CN's II-XII intact bilaterally and moves all extremities Neuro Narrative: Mild past pointing with [id number], mild apraxia, proximal weakness at 4- out of 5, elbow and knee flexion extension 5 out of 5, weakness in ankle flexors and extensors, marked bilateral hand weakness, patient is oriented to self and place, is able to tell me it is May but tells me it is 2018 and is unclear who the president of [facility] is Sensorium / Orientation: awake, alert, oriented to person and oriented to place; Negative for oriented to time Speech: speech normal Psych affect normal Appearance: unkempt and disheveled Activity / Motor Behavior: appropriate eye contact Speech: delayed Mood & Affect: Negative for depressed or anxious Thought Process: disorganized and confused Memory / Cognition: cognition impaired Assessment & Plan Assessment/Plan (1) Memory loss: PLAN: #1 upper extremity paresthesias and complaints of upper extremity weakness-etiology unclear at this time, continue PT and OT, patient will need at least temporary placement in a penitentiary facility. #2 cognitive impairment-I suspect this may be secondary to early dementia #3 essential hypertension #4 elevated cholesterol #5 severe caloric and protein malnutrition #6 history of alcoholism Visit Charges Inpatient E&M: 81206 Subs Hosp L2
[2020-08-02] MEDS: Atorvastatin Calcium 80 MG Tablet PO (21:56)
[2020-08-02] MEDS: MELATONIN 3 MG TABLET PO (21:58)
[2020-08-03 02:37] VITALS: BP 150/89; PULSE 72; RESP 18; TEMP 36.8; O2SAT 99
[2020-08-03 07:32] VITALS: O2SAT 97
[2020-08-03] MEDS: Multivitamins,Therapeutic Tablet 1 TABLET PO (07:36)
[2020-08-03] MEDS: Folic Acid 1 MG Tablet PO (07:36)
[2020-08-03] MEDS: Aspirin E.C. 81 MG Tablet PO (07:36)
[2020-08-03] MEDS: Thiamine Hydrochloride 100 MG Tablet PO (07:36)
[2020-08-03] MEDS: Losartan Potassium 100 MG Tablet PO (07:36)
[2020-08-03] MEDS: Enoxaparin 40 MG/0.4 ML Syringe SC (07:36)
[2020-08-03] MEDS: buPROPion (XL) 300 MG TABLET.XL PO (07:36)
[2020-08-03 08:06] VITALS: BP 150/90; PULSE 71; RESP 16; TEMP 37; O2SAT 96
--- NOTE | 2020-08-03 08:17 | CASEMGMT ---
Addendum entered by Allyson Sahu 08/03/20 12:12: TAN placed a call to Allyson at [facility] and left message that pt is medically cleared for discharge once pre-cert is obtained. Addendum entered by Allyson Sahu 08/03/20 11:26: TAN updated pt on acceptance to [facility] pending pre-cert. Pt states understanding. Original Note: Social Work Note SW received message from Allyson at [facility] stating [facility] is able to accept pt and pre-cert has been submitted. Plan: [facility] pending pre-cert Allyson Sahu ESTIMATOR, TAKE UP OPERATOR
[2020-08-03 12:18] VITALS: BP 130/80; PULSE 92; RESP 16; TEMP 36.7; O2SAT 97
--- NOTE | 2020-08-03 13:49 | PCM.TXEXTCAR ---
Diet 07/31/20 14:25 Diet: Regular - General Food consistency:: Regular Liquid Consistency:: Regular/Thin Routine Orders/Code Status Code Status: Full Code Therapies Weight Bearing: Full weight bearing Problem/Diagnosis (1) Memory loss: Status: Acute Comment: secondary to chronic alcoholism (2) Weakness: Status: Acute (3) HTN (hypertension): Status: Chronic (4) Paresthesias: Status: Acute Comment: etiology unknown (5) Neuropathy: Status: Acute Comment: etiology unknown (6) Encephalopathy: Status: Acute Comment: secondary to chronic alcohol intake Allergies/Procedures Done in Hospital Allergies No Known Allergies Allergy (Verified 07/31/20 15:26) Procedures: None Type of Care/Length of Stay Estimated LOS: Convalescent Care Less Than 30 days Type of Care Needed: Skilled Rehab Potential: Good Prognosis: Good Additional Orders/Day of Discharge H&P will serve as current which was dated: 07/31/20 Day of Discharge: 08/03/20 Dietary and Speech Recommendations Dietitian Recommendations/Changes: continue regular diet, 120mL ensure enlive 4x/day Follow Up Care Please Follow Up With: Neurology at [facility]-call for appointment Discharge Plan Admission Admit Date/Time: 07/31/20 15:43 Primary Reason for Your Visit: neuropathy, encephalopathy Attending Provider: Jhon Alvarez Primary Care Provider: Suleiman Jacobsen Discharge Orders/Prescriptions Prescriptions: Continued atorvastatin 80 mg Tablet 80 mg PO QHS RF: 0 aspirin 81 mg Tablet,Delayed Release (Dr/Ec) 81 mg PO DAILY RF: 0 losartan 100 mg Tablet 100 mg PO DAILY RF: 0 bupropion HCl 300 mg Tablet Extended Release 24 Hr 300 mg PO DAILY RF: 0 Referrals / Follow Up: Suleiman Jacobsen DO [Primary Care Provider] - Disposition Disposition (needs filled in before D/C Order can be placed): [facility] Facility
[2020-08-03 14:28] VITALS: BP 122/78; PULSE 90; RESP 16; TEMP 37.1; O2SAT 98
--- NOTE | 2020-08-03 14:47 | DS.PCM_ITS ---
Providers Date of Admission: 07/31/20 Date of Discharge: 08/03/20 Primary Care Physician: Dr. Suleiman Jacobsen DO Reason For Visit: ATAXIA Diagnosis Discharge Diagnosis (1) Memory loss: Status: Acute Code(s): R41.3 - Other amnesia (2) Weakness: Status: Acute Code(s): R53.1 - Weakness (3) HTN (hypertension): Status: Chronic Code(s): I10 - Essential (primary) hypertension (4) Paresthesias: Status: Acute Code(s): R20.2 - Paresthesia of skin (5) Neuropathy: Status: Acute Code(s): G62.9 - Polyneuropathy, unspecified (6) Encephalopathy: Status: Acute Code(s): G93.40 - Encephalopathy, unspecified Plan: 1. Neuropathy-etiology unclear, this appears to be a chronic process over the last several weeks #2 diffuse muscle weakness-etiology unclear #3 tyhlakqwzgceza-opbqxyk-[id number] secondary to history of excessive alcohol intake #4 essential hypertension #5 history of alcohol abuse #6 cognitive impairment-probably secondary to chronic alcohol abuse #7 severe protein and caloric malnutrition Medications at Discharge Home Medications aspirin 81 mg PO DAILY 07/31/20 atorvastatin 80 mg PO QHS 07/31/20 bupropion HCl 300 mg PO DAILY 07/31/20 losartan 100 mg PO DAILY 07/31/20 Hospital Course Operations None Procedures None Summary of Care Provided Minutes Spent on Discharge: 33 Hospital Course: This 64-year-old white male was seen in the emergency room at [facility] after being brought in at the direction of his brother when he was found at his home confused and unable to take care of himself. It appears that the patient has had a history over the last few months of muscle weakness along with paresthesias in his hands and he is unable to take care of himself. In addition he has had a recent history of cognitive decline. Patient has a long history of alcohol abuse and it was unknown if the patient was currently drinking excessive amounts of alcohol at home. Work-up in the emergency room included labs which showed an unremarkable CBC, chemistry profile was also unremarkable, vitamin B12 level was normal, and patient had a CT of the brain which was normal. Patient was admitted to [place] [address], he was seen by PT and OT, patient remained confused but was directable, he was a poor historian. He agreed for short-term placement at a intermediate facility due to due to inability to care for himself at home. Patient had an MRI performed of the brain with showed involutional changes of the brain, cervical spine MRI was performed and showed diffuse degenerative disc disease of the cervical spine which was not severe. The etiology of the patient's muscle weakness was unknown, medical information obtained from the [facility] through his PCP on 08/03/2020 shows that the patient is seen to neurologist at the [facility], the second neurologist recommended a muscle biopsy on the patient, large amount of lab was drawn at the [facility] in the month of April which did not point to any specific reason for the patient's neuropathy and muscle weakness. On 08/03/2020, patient was seen and examined: Const alert, no apparent distress and average body habitus; Negative for oriented x3, healthy appearing or well nourished General Appearance: cooperative, disheveled and appears older than stated age; Negative for uncooperative Orientation / Consciousness: confused; Negative for disoriented or lethargic Nutritional Appearance: underweight HEENT normocephalic, head/scalp atraumatic, hearing grossly normal bilaterally, moist oral mucous membranes and oropharynx normal; Negative for dentition normal Eyes PERRL, EOMs intact bilaterally and conjunctivae normal Neck no lymphadenopathy, supple, no JVD and no carotid bruits Resp normal respiratory effort, no retractions, no use of accessory muscles and clear to auscultation bilaterally Resp Narrative: Diffusely diminished Auscultation: Negative for crackles, rales, rhonchi or wheezes Cardio regular rate, regular rhythm, S1 normal heart sound, S2 normal heart sound, no murmurs, no rub, no gallops, no clicks and no JVD GI normal to inspection, nondistended, normoactive bowel sounds, soft to palpation, non-tender and non-distended; Negative for hepatosplenomegaly Auscultation: Negative for hyperactive bowel sounds or hypoactive bowel sounds Palpation: tender; Negative for guarding or hernia Extremity normal to inspection; Negative for full ROM or no clubbing, cyanosis or edema Skin no wounds, skin turgor normal, no jaundice, no petechiae and no mottling Skin Narrative: Patchy psoriasis bilateral elbows bilateral knees low back Neuro No oriented x3, CN's II-XII intact bilaterally and moves all extremities Neuro Narrative: Mild past pointing with [id number], mild apraxia, proximal weakness at 4- out of 5, elbow and knee flexion extension 5 out of 5, weakness in ankle flexors and extensors, marked bilateral hand weakness, patient is oriented to self and place, is able to tell me it is July but tells me it is 2018 and is unclear who the president of [facility] is Sensorium / Orientation: awake, alert, oriented to person and oriented to place; Negative for oriented to time Speech: speech normal Psych affect normal Appearance: unkempt and disheveled Activity / Motor Behavior: appropriate eye contact Speech: delayed Mood & Affect: Negative for depressed or anxious Thought Process: disorganized and confused Memory / Cognition: cognition impaired Patient was felt stable for discharge to an extended care facility on 08/03/2020, I talked with Dr. Yomi Jamison who would be taking care of him out at [facility] about his medical care and I also included paperwork obtained from the [facility] concerning his recent imaging studies and lab work as well as consultations at the clinic in the packet going to the [facility]. ABG / Lab / Microbiology Data Result Diagrams: 08/01/20 05:45 08/01/20 05:45 Laboratory: Laboratory Results - last 24 hr 08/02/20 16:22 Folate 33.70 Microbiology: Microbiology 08/03/20 13:45 SARS-CoV-2 Antigen (Rapid) - Final Mucosa - Nose Microbiology 08/03/20 13:45 Mucosa - Nose SARS-CoV-2 Antigen (Rapid) - Final D/C Instructions Please Follow Up With: Neurology at [facility]-call for appointment Meaningful Use Info Meaningful Use Diagnoses (Choose all that apply): None applicable Discharge Plan Admission Admit Date/Time: 07/31/20 15:43 Primary Reason for Your Visit: neuropathy, encephalopathy Attending Provider: Jhon Alvarez Primary Care Provider: Suleiman Jacobsen Discharge Orders/Prescriptions Prescriptions: Continued atorvastatin 80 mg Tablet 80 mg PO QHS RF: 0 aspirin 81 mg Tablet,Delayed Release (Dr/Ec) 81 mg PO DAILY RF: 0 losartan 100 mg Tablet 100 mg PO DAILY RF: 0 bupropion HCl 300 mg Tablet Extended Release 24 Hr 300 mg PO DAILY RF: 0 Referrals / Follow Up: Suleiman Jacobsen DO [Primary Care Provider] - Disposition Disposition (needs filled in before D/C Order can be placed): Intermediate Fa cility Visit Charges Inpatient E&M: 58858 Disch Hosp
--- NOTE | 2020-08-03 14:50 | PHA.DC.MR ---
Pharmacy Service has performed discharge medication reconciliation for this patient. The patient's discharge medication list was reviewed for discrepancies and discrepancies were resolved. Home Medications aspirin 81 mg PO DAILY 07/31/20 atorvastatin 80 mg PO QHS 07/31/20 bupropion HCl 300 mg PO DAILY 07/31/20 losartan 100 mg PO DAILY 07/31/20
--- NOTE | 2020-08-03 15:10 | CASEMGMT ---
Social Work Note TAN received call from Allyson at [facility] stating pre-cert has been obtained and pt can discharge today. SW updated physician. TAN faxed completed discharge paperwork to [facility] including transfer to extended care facility, signed medication list, any scripts, COVID test and COVID tool. Original in SNF folder and copy on pt's chart. TAN completed [facility] in [facility]. Original in SNF Folder and copy on pt's chart. TAN spoke with RN, pt can transport via wheelchair van. TAN accessed trip assist and arranged transportation via wheelchair van for 3:30pm. Transportation form completed and placed on SNF folder and copy on pt's chart. TAN placed a call to Allyson at [facility] and updated her on transportation time. Allyson states their RN needs to know pt's CPAP settings. TAN spoke with RN, pt hasn't needed his CPAP while at [facility], no settings obtained. TAN placed another call to Allyson at [facility] and updated her on that. TAN updated RN on transportation time. SW in to speak with pt. SW updated pt on acceptance and discharge to [facility] and transportation time. Pt states understanding, gave this worker permission to call his brother Jluis to update on discharge. SW attempted to call pt's brother Jluis, no answer, no identifying information on voicemail. Plan: [facility] skilled today with Physician's transporting pt via wheelchair van at 3:30pm. Allyson Sahu AUDITOR, [employer]
[2020-08-03 16:08] LABS: Folate, RBC (Hct) Test 35.7 % (37.5-51.0)
[2020-08-03 18:55] LABS: Folates, RBC Test 1171 ng/mL (>498)
== END 2020-08-03 15:58 | disposition skilled nursing facility (03) | DRG 42 ==
LOC: ED 14:05 → MS3 16:24
PROVIDERS: Admitting Provider Internal Medicine; Emergency Provider Emergency Medicine; PCP Student in an Organized Health Care Education/Training Program; Visit Provider Internal Medicine
DX: G31.2 Degeneration of nervous system due to alcohol (principal); F10.10 Alcohol abuse, uncomplicated; I10 Essential (primary) hypertension; G62.9 Polyneuropathy, unspecified; E43 Unspecified severe protein-calorie malnutrition; Z68.22 Body mass index [BMI] 22.0-22.9, adult; E78.00 Pure hypercholesterolemia, unspecified; M50.30 Other cervical disc degeneration, unspecified cervical region; I25.2 Old myocardial infarction; G47.30 Sleep apnea, unspecified; E78.5 Hyperlipidemia, unspecified; L40.9 Psoriasis, unspecified; Z87.891 Personal history of nicotine dependence; Z79.82 Long term (current) use of aspirin; Z79.899 Other long term (current) drug therapy
CPT/HCPCS: 36415; 70450; 70551; 71046; 72141; 80048; 80053; 81001; 82607; 82746; 82747; 83735; 84100; 84439; 84443; 85014; 85025; 87426; 93005; 97110; 97163; 97165; 97530; 97535; 97802; 99251; 99285; J7030; G0463

== ENCOUNTER → 2021-05-05 | Outpatient (REF) | payer SELFPAY ==
[2021-05-05 09:28] LABS: Absolute Neutrophil Count 3.6 X10^3/uL (2.0-7.7); Basophil# 0.05 X10^3/uL; Basophil% 0.9 % (0-1); Eosinophil# 0.22 X10^3/uL; Eosinophils% 3.8 % (0-5); Hematocrit 37.7 % (40-54); Hemoglobin 12.3 g/dL (13.0-16.5); Lymphocyte % 20.9 % (19-41); Mean Corp Hgb Conc 32.6 g/dL (32-36); Mean Corpuscular Hgb 30.8 pg (27.0-32.0); Mean Corpuscular Volume 94.3 fL (80-94); Mean Platelet Vol. 11.2 fl (6.2-12.0); Monocyte# 0.65 X10^3/uL; Monocyte% 11.3 % (0-10); NRBC Flagged by Analyzer 0 % (0-5); Neutrophil # 3.59 X10^3/uL (2.7-7.7); Neutrophil % 62.8 % (47-70); Platelet Count 202 K/mm3 (150-450); RBC Distribution Width CV 12.1 % (11.6-14.6); RBC Distribution Width SD 41.5 fl (35.1-43.9); White Blood Count 5.7 K/mm3 (4.4-11.0)
[2021-05-05 09:37] LABS: Anion Gap 6 (5-15); BUN 17 mg/dL (7-18); BUN/Creat Ratio 24.9 RATIO (10-20); Calcium,Total 9.1 mg/dL (8.5-10.1); Chloride 105 mmol/L (98-107); Creatinine, Serum 0.68 mg/dL (0.70-1.30); EST Glomerular Filtration Rate 124 mL/min (>60); Est Glom Filt Rate - Afr Amer 151 mL/min (>60); Glucose 86 mg/dL (74-106); Potassium 3.9 mmol/L (3.5-5.1); Sodium Level 141 mmol/L (136-145)
== END | disposition home or self-care (01) ==
LOC: OLS.SW500 05:00
PROVIDERS: PCP Student in an Organized Health Care Education/Training Program; Visit Provider Family Medicine
DX: I10 Essential (primary) hypertension (principal); G93.40 Encephalopathy, unspecified
CPT/HCPCS: 36415; 80048; 85025

== ENCOUNTER → 2021-05-30 | Outpatient (REF) | payer SELFPAY ==
[2021-05-30 07:56] LABS: Hematocrit 39.6 % (40-54); Hemoglobin 13.4 g/dL (13.0-16.5); Mean Corp Hgb Conc 33.8 g/dL (32-36); Mean Corpuscular Hgb 31.5 pg (27.0-32.0); Mean Platelet Vol. 10.9 fl (6.2-12.0); Platelet Count 203 K/mm3 (150-450); RBC Distribution Width CV 12.3 % (11.6-14.6); RBC Distribution Width SD 41.9 fl (35.1-43.9); Red Blood Count 4.26 M/mm3 (4.6-6.2); White Blood Count 6.2 K/mm3 (4.4-11.0)
[2021-05-30 08:41] LABS: Iron 97 ug/dL (65-175)
== END | disposition home or self-care (01) ==
LOC: OLS.SW500 04:00
PROVIDERS: PCP Student in an Organized Health Care Education/Training Program; Visit Provider Family Medicine
DX: M62.838 Other muscle spasm (principal)
CPT/HCPCS: 36415; 83540; 85027

== ENCOUNTER → 2021-08-01 | Outpatient (REF) | payer SELFPAY ==
[2021-08-01 09:27] LABS: Vitamin D,25 Hydroxy 30.2 ng/mL
== END | disposition home or self-care (01) ==
LOC: OLS.SW500 05:00
PROVIDERS: PCP Student in an Organized Health Care Education/Training Program; Visit Provider Family Medicine
DX: E55.9 Vitamin D deficiency, unspecified (principal)
CPT/HCPCS: 36415; 82306

== ENCOUNTER → 2021-08-04 | Outpatient (REF) | payer MEDICAID, SELFPAY ==
[2021-08-04 08:47] LABS: Absolute Lymphocyte Count 1.04 X10^3/uL (0.83-4.51); Absolute Neutrophil Count 6.6 X10^3/uL (2.0-7.7); Basophil# 0.05 X10^3/uL; Basophil% 0.6 % (0-1); Eosinophil# 0.19 X10^3/uL; Eosinophils% 2.1 % (0-5); Hematocrit 41.3 % (40-54); Hemoglobin 13.8 g/dL (13.0-16.5); Lymphocyte # 1.04 X10^3/ul (0.83-4.51); Lymphocyte % 11.8 % (19-41); Mean Corp Hgb Conc 33.4 g/dL (32-36); Mean Corpuscular Hgb 30.6 pg (27.0-32.0); Mean Corpuscular Volume 91.6 fL (80-94); Mean Platelet Vol. 10.4 fl (6.2-12.0); Monocyte# 0.87 X10^3/uL; Monocyte% 9.8 % (0-10); NRBC Flagged by Analyzer 0 % (0-5); Neutrophil # 6.63 X10^3/uL (2.7-7.7); Platelet Count 256 K/mm3 (150-450); RBC Distribution Width CV 12.2 % (11.6-14.6); RBC Distribution Width SD 40.9 fl (35.1-43.9); Red Blood Count 4.51 M/mm3 (4.6-6.2); White Blood Count 8.8 K/mm3 (4.4-11.0)
[2021-08-04 08:56] LABS: Anion Gap 8 (5-15); BUN 12 mg/dL (7-18); BUN/Creat Ratio 20.2 RATIO (10-20); Calcium,Total 9.3 mg/dL (8.5-10.1); Chloride 100 mmol/L (98-107); Creatinine, Serum 0.59 mg/dL (0.70-1.30); EST Glomerular Filtration Rate 146 mL/min (>60); Est Glom Filt Rate - Afr Amer 177 mL/min (>60); Glucose 92 mg/dL (74-106); Potassium 3.9 mmol/L (3.5-5.1); Sodium Level 133 mmol/L (136-145)
== END | disposition home or self-care (01) ==
LOC: OLS.SW500 05:00
PROVIDERS: PCP Student in an Organized Health Care Education/Training Program; Referring Provider Family Medicine; Visit Provider Family Medicine
DX: R53.81 Other malaise (principal)
CPT/HCPCS: 36415; 80048; 85025

== ENCOUNTER → 2021-09-23 04:00 | Outpatient (REF) | payer MEDICAID, SELFPAY | LOC: OLS.SW500 04:00 | PROVIDERS: PCP Student in an Organized Health Care Education/Training Program; Visit Provider Family Medicine | DX: E43 Unspecified severe protein-calorie malnutrition (principal) | CPT/HCPCS: 36415; 84134 ==